=== PATIENT | female | born 1960 | race Caucasian/White ===

== ENCOUNTER → 2024-10-06 | Outpatient (CLI) | payer MEDICARE ==
--- NOTE | 2024-10-07 07:56 | XR ---
EXAMINATION TYPE: XR lumbar spine 2 or 3V DATE OF EXAM: 10/06/2024 4:42 PM COMPARISON: 05/05/2011 CLINICAL INDICATION: Female, 63 years old with history of M54.2 M54.50 M54.6 Back pain, low back pain TECHNIQUE: 3 view(s) obtained. FINDINGS: There are 5 lumbar-type vertebral bodies. Pedicles are intact. There is attempted lumbarization of th e S1 level on the right. Mild scoliosis is present. Disc space narrowing is present posteriorly L3-4 diffusely mildly at L2-3. Spondylosis in the upper lumbar spine. There is a grade 1 spondylolisthesis of L5 anterior to S1 IMPRESSION: 1. Grade 1 spondylolisthesis of L5 anteriorly on S1. This has developed from comparison [facility], , 10/07/2024 7:53 AM
--- NOTE | 2024-10-07 07:57 | XR ---
EXAMINATION TYPE: XR cervical spine comp DATE OF EXAM: 10/06/2024 4:42 PM COMPARISON: None. CLINICAL INDICATION: Female, 63 years old with history of M54.2 M54.50 M54.6 Back pain, pain TECHNIQUE: 5 view(s) obtained. FINDINGS: Right foraminal stenosis present C3-4. Prevertebral space is normal. Large anterior vertebral body sp urs present from the inferior endplate of C5. Small anterior vertebral body spurs present at C6. Mild posterior endplate spurring is present in inferior C3. Posterior spinal lamellar line is intact. There is loss of disc height C3-4 C5-C6 posteriorly C6-7 IMPRESSION: 1. Degenerative disc change discussed above. 2. Foraminal stenosis right C3-4. [facility], , 10/07/2024 7:55 AM
== END | disposition home or self-care (01) ==
LOC: RADXRMAIN 16:08
PROVIDERS: ATTEND Family Medicine
DX: M48.02 Spinal stenosis, cervical region (principal); M50.30 Other cervical disc degeneration, unspecified cervical region; M43.17 Spondylolisthesis, lumbosacral region
CPT/HCPCS: 72050; 72100

== ENCOUNTER → 2024-10-07 | Outpatient (CLI) | payer MEDICARE ==
--- NOTE | 2024-10-07 17:43 | MM ---
Reason for Exam: Screening (asymptomatic). Last mammogram was performed 10 year(s) and 1 month(s) ago. Patient History: Menarche at age 13. First Full-Term at age 29. Late child-bearing (after 30). Postmenopausal. Hormonal Contraceptives for 2 years from age 17 until age 45. Risk Values: Geena 5 year model risk: 2.0%. NCI Lifetime model risk: 8.1%. Prior Study Comparison: 06/26/2006 Bilateral Screening Mammogram, [facility]. 07/09/2006 Bilateral Diagnostic Mammogram, [facility]. 08/30/2014 Bilateral Screening Mammogram, [facility]. Tissue Density: There are scattered areas of fibroglandular density. Findings: Analyzed By CAD. Large irregular high density mass mid to posterior depth upper outer quadrant of the right breast measuring up to 8 to 9 cm. No suspicious microcalcification or other discrete abnormality is seen. Overall Assessment: Incomplete: need additional imaging evaluation, BI-RAD 0 Management: Special View Mammogram of the right breast. Diagnostic Breast Ultrasound of the right breast. Additional view: 3-D ML. Subsequent whole right breast ultrasound. Surgical consultation. [facility] will attempt to contact patient to return for supplemental views and ultrasound . [facility], , 10/07/2024 5:40 PM. Electronically signed and approved by: Gloria Stevens M.D. Radiologist
== END | disposition home or self-care (01) ==
LOC: RADMAMWWP 16:03
PROVIDERS: ATTEND Family Medicine
DX: Z12.31 Encounter for screening mammogram for malignant neoplasm of breast (principal); R92.323 Mammographic fibroglandular density, bilateral breasts; Z78.0 Asymptomatic menopausal state; Z92.0 Personal history of contraception
CPT/HCPCS: 77063; 77067

== ENCOUNTER → 2024-10-12 | Outpatient (CLI) | payer MEDICARE ==
--- NOTE | 2024-10-12 08:22 | MM ---
Reason for Exam: Additional evaluation requested from abnormal screening. Last screening mammogram was performed less than 1 month ago. Patient History: Menarche at age 13. First Full-Term at age 29. Late child-bearing (after 30). Postmenopausal. Hormonal Contraceptives for 2 years from age 17 until age 45. Risk Values: Geena 5 year model risk: 2.1%. NCI Lifetime model risk: 7.8%. Prior Study Comparison: 01/14/1996 Screening Mammogram, Unknown. 01/24/1999 Bilateral Screening Mammogram, [facility]. 07/09/2006 Bilateral Diagnostic Mammogram, [facility]. 08/30/2014 Bilateral Screening Mammogram, [facility]. 10/07/2024 Bilateral MG 3D screening mammo w/cad, [facility]. Tissue Density: Right: There are scattered areas of fibroglandular density. Findings: Analyzed By CAD. Right breast: Nodular upper outer right breast demonstrates a large partially spiculated mass at 10.1 cm from the nipple measuring 8.0 x 7.2 x 3.7 cm. This mass is felt to reflect malignancy until proven otherwise. Ultrasound is advised. No additional masses within the right breast. Left breast: There is a well-circumscribed 9 mm nodule retroareolar left breast 2.5 cm from the nipple at the approximate 3:00 position. Ultrasound is also advised. Overall Assessment: Incomplete: need additional imaging evaluation, BI-RAD 0 Management: Diagnostic Breast Ultrasound of both breasts. . Results were given to the patient verbally at the time of exam. Patient should continue monthly self-breast exams. A clinical breast exam by your physician is recommended on an annual basis. This exam should not preclude additional follow-up of suspicious palpable abnormalities. Note on Geena scores and lifetime risk: 1. A Geena score greater than 3% is considered moderate risk. If this is the case, consider specialist referral to assess eligibility for a risk reducing agent. 2. If overall lifetime risk for the development of breast cancer is 20% or higher, the patient may qualify for future screening with alternating mammogram and breast MRI. [facility], , 10/12/2024 8:19 AM. Electronically signed and approved by: Fawad Dejesus M.D. Radiologis
--- NOTE | 2024-10-12 08:50 | USB ---
Reason for Exam: Clinical finding. Patient History: Menarche at age 13. First Full-Term at age 29. Late child-bearing (after 30). Postmenopausal. Hormonal Contraceptives for 2 years from age 17 until age 45. Risk Values: Geena 5 year model risk: 2.1%. NCI Lifetime model risk: 7.8%. Technique: Method: Targeted. Doppler: Color. Patient Position: Lateral Decubitus. Prior Study Comparison: 07/09/2006 Bilateral Diagnostic Mammogram, [facility]. 08/30/2014 Bilateral Screening Mammogram, [facility]. 10/07/2024 Bilateral MG 3D screening mammo w/cad, [facility]. Findings: The upper outer quadrant of the right breast, the lateral section of the breast of the left breast, the area of palpable concern of the right breast, the axilla of both breasts and the retroareolar of both breasts were scanned. A complete US of all four quadrants of the breast and retro-areolar region were reviewed. Right breast: There is a large infiltrative mass right breast upper-outer quadrant which is difficult to measure however ultrasound measurements are approximately 6.7 x 5.1 x 4.6 cm. There appears to be infiltration into the skin. There may also be infiltration into the musculature posteriorly. No additional masses are seen. There is a lymph node within the right axilla with cortical thickening of 3.7 mm. Biopsy should be considered. Left breast: There is an irregular appearing mass at the left 3:00 position measuring 2.5 x 0.9 x 0.9 cm. Tissue diagnosis is also recommended. No additional masses within the [id number] left breast. Left axilla is unremarkable. Overall Assessment: Highly suggestive of malignancy, BI-RAD 5 Management: Ultrasound Core Biopsy of both breasts. A clinical breast exam by your physician is recommended on an annual basis and results should be correlated with mammographic findings. This exam should not preclude additional follow-up of suspicious palpable abnormalities. Results were given to the patient verbally at the time of exam. [facility], , 10/12/2024 8:47 AM. Electronically signed and approved by: Fawad Dejesus M.D. Radiologis
== END | disposition home or self-care (01) ==
LOC: RADMAMWWP 07:41
PROVIDERS: ATTEND Family Medicine
DX: R92.8 Other abnormal and inconclusive findings on diagnostic imaging of breast (principal); R92.323 Mammographic fibroglandular density, bilateral breasts; Z78.0 Asymptomatic menopausal state; Z92.0 Personal history of contraception
CPT/HCPCS: 77061; 77065

== ENCOUNTER → 2024-10-25 | Outpatient (CLI) | payer MEDICARE ==
--- NOTE | 2024-10-25 20:45 | BD ---
EXAMINATION TYPE: Axial Bone Density DATE OF EXAM: 10/25/2024 CLINICAL HISTORY: 64 years old Female. ICD-10 CODE: M8580 DISORDER OF BONE , Additional History: Height: 64.5 in Weight: 149 lbs EXAM MEASUREMENTS: Bone mineral densitometry was performed using the RetSKU System. Bone mineral density as measured about the Lumbar spine is: ----- L1-L4(G/cm2): 0.919 T Score Values are as follows: ----- L1: -2.0 ----- L2: -2.5 ----- L3: -2.2 ----- L4: -2.1 ----- L1-L4: -2.2 Z Score Values are as follows: ----- L1: -0.5 ----- L2: -1.0 ----- L3: -0.7 ----- L4: -0.6 ----- L1-L4: -0.7 Bone mineral density has: Decreased -12.1% since study of: 08/30/2014 Bone mineral density about the R hip (g/cm2): 0.819 Bone mineral density about the L hip (g/cm2): 0.860 T Score values are as follows: -----R Neck: -1.7 -----L Neck: -2.0 -----R Total: -1.5 -----L Total: -1.2 Z Score values are as follows: -----R Neck: -0.3 -----L Neck: -0.6 -----R Total: -0.4 -----L Total: 0.0 Bone mineral density has: Decreased -7.4% since study of: 08/30/2014 FRAX%s: The graph provided illustrates a 11.0% chance for a major osteoporotic fx and a 1.7% chance f or the hips probability for fx in 10 years time. IMPRESSION: Osteopenia (T Score between -2.5 and -1). There is slightly increased risk of fracture and the patient may be considered for treatment. Re-Screen 2-5 years. NOTE: T-SCORE=SD OF THE YOUNG ADULT MEAN. [facility], , 10/25/2024 8:42 PM
== END | disposition home or self-care (01) ==
LOC: RADBDWWP 16:14
PROVIDERS: ATTEND Family Medicine
DX: M85.80 Other specified disorders of bone density and structure, unspecified site (principal); M85.89 Other specified disorders of bone density and structure, multiple sites
CPT/HCPCS: 77080

== ENCOUNTER → 2025-01-02 | Outpatient (CLI) | payer MEDICARE ==
--- NOTE | 2025-01-02 09:52 | XR ---
EXAMINATION TYPE: XR Hip Complete LT DATE OF EXAM: 01/02/2025 9:49 AM INDICATION: Patient age:Female; 64 years old; Reason for study: [id number] LT HIP PAIN; [facility]. pain COMPARISON: None. TECHNIQUE: The left hip was examined in the frontal and lateral projections. FINDINGS: No evidence of any acute osseous pathology, joint dislocation, or soft tissue swelling. No significant joint space narrowing. IMPRESSION: No acute osseous pathology. [facility], , 01/02/2025 9:50 AM
== END | disposition home or self-care (01) ==
LOC: RADXRYALE 09:35
PROVIDERS: ATTEND Family Medicine
DX: M25.552 Pain in left hip (principal)
CPT/HCPCS: 73502

== ENCOUNTER → 2025-01-16 | Outpatient (CLI) | payer MEDICARE ==
--- NOTE | 2025-01-16 14:39 | NM ---
EXAMINATION TYPE: NM bone scan whole body DATE OF EXAM: 01/16/2025 COMPARISON: NONE CLINICAL INDICATION: Female, 64 years old with history of D24.1 Breast Mass; TECHNIQUE: Delayed whole-body scanning was performed following the injection of 23.9 mCi Tc 99m MDP. Images acquired 3.25 hours post injection. FINDINGS: Increased activity at the mouth in keeping with periodontal disease. There is some degenerative trace r activity at both shoulders and right sternoclavicular joint. Also involving the L4 vertebral body a nd L5 posterior elements. Increased activity is also present at the knees, base of the thumbs, bilate ral midfoot/hindfoot regions and first MTP joints. Mild increased activity within the upper third tho racic spine. IMPRESSION: 1. Intense abnormal activity at L4 and posterior elements of L5. The L4 activity may reflect a compre ssion injury or severe endplate spondylosis. MRI recommended for further evaluation to exclude the po ssibility of metastatic disease. The L5 activity can be assessed on that exam as well but may be dege nerative. 2. Additional scattered degenerative tracer activity as above. [facility], Workstation: [email or web address], 01/16/2025 2:36 PM
== END | disposition home or self-care (01) ==
LOC: RADCTMAIN 10:05
PROVIDERS: ATTEND Internal Medicine Hematology & Oncology
DX: D24.1 Benign neoplasm of right breast (principal)
CPT/HCPCS: 78306; A9503

== ENCOUNTER → 2025-01-16 | Outpatient (CLI) | payer MEDICARE ==
--- NOTE | 2025-01-16 08:38 | MM ---
Reason for Exam: Follow-up at short interval from prior study. Last screening mammogram was performed 3 month(s) ago. Patient History: Menarche at age 13. First Full-Term at age 29. Late child-bearing (after 30). Postmenopausal. Hormonal Contraceptives for 2 years from age 17 until age 45. Risk Values: Geena 5 year model risk: 2.1%. NCI Lifetime model risk: 7.8%. Prior Study Comparison: 08/30/2014 Bilateral Screening Mammogram, [facility]. 10/07/2024 Bilateral MG 3D screening mammo w/cad, [facility]. 10/12/2024 Right MG 3D work up w/cad RT, [facility]. 10/12/2024 Bilateral US breast workup limited MARGARITA, [facility]. Tissue Density: The breasts are almost entirely fatty. Findings: Analyzed By CAD. Persistent large mass in the right upper outer quadrant. Again, Recommendation for biopsy and oncologic workup. Overall Assessment: Incomplete: need additional imaging evaluation, BI-RAD 0 Management: Diagnostic Breast Ultrasound of the right breast. Results were given to the patient verbally at the time of exam. Patient should continue monthly self-breast exams. A clinical breast exam by your physician is recommended on an annual basis. This exam should not preclude additional follow-up of suspicious palpable abnormalities. Note on Geena scores and lifetime risk: 1. A Geena score greater than 3% is considered moderate risk. If this is the case, consider specialist referral to assess eligibility for a risk reducing agent. 2. If overall lifetime risk for the development of breast cancer is 20% or higher, the patient may qualify for future screening with alternating mammogram and breast MRI. [facility], , 01/16/2025 8:34 AM. Electronically signed and approved by: Darius Osullivan DO
--- NOTE | 2025-01-16 09:22 | USB ---
Reason for Exam: Clinical finding. Patient History: Menarche at age 13. First Full-Term at age 29. Late child-bearing (after 30). Postmenopausal. Hormonal Contraceptives for 2 years from age 17 until age 45. Risk Values: Geena 5 year model risk: 2.1%. NCI Lifetime model risk: 7.8%. Technique: Method: Targeted. Prior Study Comparison: 08/30/2014 Bilateral Screening Mammogram, [facility]. 10/07/2024 Bilateral MG 3D screening mammo w/cad, [facility]. 10/12/2024 Right MG 3D work up w/cad RT, [facility]. Findings: The upper outer quadrant of both breasts and the axilla of both breasts were scanned. Technique utilized:US breast limited BILAT Image; Ultrasound imaging of: Area right upper outer quadrant, retroareolar region and axilla. Left breast image axilla and area of concern in the retroareolar region. Redemonstration of dominant mass in the right breast measuring up to 8.0 x 4.3 x 7.0 cm. Right axillary lymph node with thickened cortex up to 7 mm suspicious for malignancy. Finding in the left breast is not definitively visualized on today's exam. No suspicious findings in left breast visualized. Negative left axilla. Overall Assessment: Highly suggestive of malignancy, BI-RAD 5 Management: Ultrasound Core Biopsy of the right breast. A clinical breast exam by your physician is recommended on an annual basis and results should be correlated with mammographic findings. This exam should not preclude additional follow-up of suspicious palpable abnormalities. Results were given to the patient verbally at the time of exam. [facility], , 01/16/2025 9:17 AM. Electronically signed and approved by: Darius Osullivan DO
== END | disposition home or self-care (01) ==
LOC: RADMAMWWP 08:00
PROVIDERS: ATTEND Internal Medicine Hematology & Oncology
DX: N63.11 Unspecified lump in the right breast, upper outer quadrant (principal); N64.4 Mastodynia; R92.313 Mammographic fatty tissue density, bilateral breasts; Z78.0 Asymptomatic menopausal state; Z92.0 Personal history of contraception
CPT/HCPCS: 77062; 77066

== ENCOUNTER → 2025-01-19 | Day surgery (SDC) | payer MEDICARE ==
--- NOTE | 2025-01-30 14:15 | MM ---
Reason for Exam: Post Procedure Mammogram. Last screening mammogram was performed less than 1 month ago. Patient History: Menarche at age 13. First Full-Term at age 29. Late child-bearing (after 30). Postmenopausal. Hormonal Contraceptives for 2 years from age 17 until age 45. Risk Values: Geena 5 year model risk: 2.1%. NCI Lifetime model risk: 7.8%. Prior Study Comparison: 10/07/2024 Bilateral MG 3D screening mammo w/cad, [facility]. 10/12/2024 Right MG 3D work up w/cad RT, [facility]. 01/16/2025 Bilateral MG 3D diag mammo w/cad MARGARITA, [facility]. 01/16/2025 Bilateral US breast limited BILAT, [facility]. Tissue Density: Right: The breasts are almost entirely fatty. Pathology Description: Location: 10 o'clock. Marker Left Behind. Cores: 5 Gauge: 18 18g bard The procedure of ultrasound guided core biopsy was explained to the patient. Benefits, alternatives, and risks were discussed. An informed consent was then obtained. The patient was placed in supine positioning for imaging and for the procedure. The overlying skin was prepped and draped in usual sterile fashion. Lidocaine buffered with bicarbonate was used as anesthetic into the skin and subcutaneous tissue up to area of concern in the right breast 10:00 6 cm nipple . A yaniv was made with surgical scalpel. Under ultrasound guidance, a 14-gauge biopsy gun device was used to obtain 4 core samples. Following this, a biopsy clip was left in lesion. The patient tolerated the procedure well without any immediate complication. The patient was kept in the radiology department for short stay after the procedure and then discharged home in stable condition. Postprocedure mammogram: The patient was transferred to mammography for physician ordered post procedure mammogram for clip placement verification. Post procedure mammogram demonstrates appropriate placement of clip. Evaluation of the left breast demonstrated no suspicious mass. No biopsy was performed on the left. Evaluation of the right axilla demonstrated the only lymph node with markedly thickened cortex and indeterminate morphology overall was within 2 mm of the lung and a large axillary vessel. A biopsy was not performed Impression: Successful, uncomplicated ultrasound guided core biopsy of area of concern in the breast, full pathology results to follow. [facility], , 01/19/2025 3:08 PM. Pathology Results: Result: Malignant, Invasive lobular carcinoma. Pathology and radiology were reviewed. Findings are concordant. RIGHT BREAST 10:00 POSITION, ULTRASOUND GUIDED CORE BIOPSY: Invasive pleomorphic lobular carcinoma, grade 3 (see [facility] surgical pathology cancer Case summary and comment). Overall Assessment: Malignant Assessment: MG diagnostic mammo RT wo CAD - Right: Known biopsy proven malignancy, BI-RAD 6. Management: Surgical Consultation of the right breast. Electronically signed and approved by: Darius Osullivan DO
== END ==
LOC: RADUSWWP 12:07
PROVIDERS: ATTEND Internal Medicine Hematology & Oncology
DX: C50.411 Malignant neoplasm of upper-outer quadrant of right female breast (principal); Z78.0 Asymptomatic menopausal state
CPT/HCPCS: 77065; 88305; 88341; 88342